=== PATIENT | female | born 1985 | race Caucasian/White ===

== ENCOUNTER 2016-06-14 13:58 | Emergency (ER) | payer MEDICAID ==
[2015-08-11 14:39] VITALS: BMI 32.4
[~2016-06-14 13:58] MED LIST: HYDROCODON-ACE1 EAC7 PO; IBUPROFEN600 MG PO; PRENATAL COMPLE1 TAB PO
== END 2016-06-14 16:31 | disposition left against medical advice (07) ==
LOC: D.ER 13:58
DX: F11.23 Opioid dependence with withdrawal (principal)

== ENCOUNTER 2017-10-30 12:42 | Emergency (ER) | payer MEDICAID ==
[2015-08-11 14:39] VITALS: BMI 32.4
== END 2017-10-30 15:19 | disposition home or self-care (01) ==
LOC: D.ER 12:42
DX: R05 Cough (principal); I44.0 Atrioventricular block, first degree; E11.9 Type 2 diabetes mellitus without complications; M32.9 Systemic lupus erythematosus, unspecified; I10 Essential (primary) hypertension